=== PATIENT | female | born 1940 | race Caucasian/White ===

== ENCOUNTER 2024-05-29 16:11 | Emergency (ER) | payer BC ==
[~2024-05-29] VITALS: Ht 167.6 cm; Wt 68.0 kg
[2024-05-29] MEDS: ACETAMINOPHEN ES 500 MG TABLET PO ONE (17:30)
[2024-05-29] MEDS: LIDOCAINE 1%-EPI 1:100,000 50 ML VIAL IJ ONE (17:30)
[2024-05-29] MEDS ORDERED: LIDOCAINE 1%-EPI 1:100,000 20 ML VIAL ONE (18:35)
[2024-05-29] MEDS ORDERED: ACETAMINOPHEN ES 500 MG TABLET ONE (18:35)
[2024-05-29 23:57] VITALS: BP 136/84; TEMP 98; O2SAT 98
== END 2024-05-29 23:57 | disposition home or self-care (01) ==
LOC: ER 16:21
DX: S02.2XXA Fracture of nasal bones, initial encounter for closed fracture (principal); S01.81XA Laceration without foreign body of other part of head, initial encounter; S80.212A Abrasion, left knee, initial encounter; S80.211A Abrasion, right knee, initial encounter; S60.511A Abrasion of right hand, initial encounter; I10 Essential (primary) hypertension; F02.80 Dementia in other diseases classified elsewhere, unspecified severity, without behavioral disturbance, psychotic disturbance, mood disturbance, and anxiety; E78.5 Hyperlipidemia, unspecified; W01.0XXA Fall on same level from slipping, tripping and stumbling without subsequent striking against object, initial encounter; Y93.89 Activity, other specified; Y92.096 Garden or yard of other non-institutional residence as the place of occurrence of the external cause; Y99.8 Other external cause status
CPT/HCPCS: 12011; 70450; 70486; 72125; 73110; 73564; 99284; J3490